=== PATIENT | female | born 1990 | race Two or more races ===

== ENCOUNTER 2024-10-06 23:19 | Emergency (ER) | payer MEDICAID, SELFPAY ==
[2024-10-06 23:20] VITALS: BMI 30.1
[2024-10-06 23:29] VITALS: BP 144/97; PULSE 94; RESP 19; TEMP 37; O2SAT 100
[2024-10-06 23:58] VITALS: RESP 18; TEMP 37; O2SAT 100
--- NOTE | 2024-10-07 04:18 | EDNOTE_ITS ---
Upper Respiratory Inf. RME/HPI General Chief Complaint: Dental/Oral/Throat Stated Complaint: SORE THROAT, COUGH, CHEST TIGHTNESS Time Seen by Provider: 10/06/24 23:53 Arrival date/time: 10/06/24 23:19 33F with no significant PMH presents to ED with 2 days of cough, sore throat, and some chest tightness. Limitations: no limitations Related Data Home Medications ?Medication ?Instructions ?Recorded ?Confirmed No Known Home Medications 09/17/23 0509/18 Allergies Allergy/AdvReac Type Severity Reaction Status Date / Time No Known Allergies Allergy Verified 11/01/23 11:32 Review of Systems Review of Systems Systems Reviewed: All systems reviewed, normal except as documented Constitutional Constitutional: Reports system reviewed and no additional complaints, except as documented, Reports as per HPI, Reports chills, Reports fever(s) and Denies headache(s) ENT Ears, Nose, Mouth, and Throat: Denies disequilibrium and Denies headache(s) Cardiovascular Cardiovascular: Reports system reviewed and no additional complaints, except as documented, Denies chest pain and Denies dyspnea Respiratory Respiratory: Reports system reviewed and no additional complaints, except as documented, Reports as per HPI, Reports chest congestion, Reports cough and Denies dyspnea Gastrointestinal Gastrointestinal: Reports system reviewed and no additional complaints, except as documented, Denies abdominal pain, Denies nausea and Denies vomiting Neurologic Neurologic: Reports system reviewed and no additional complaints, except as documented, Denies confusion, Denies disequilibrium and Denies headache(s) Psychiatric Psychiatric: Denies confusion Past Medical History Past Medical History NEUROLOGIC: Negative Neurological Disorders or Seizures CARDIAC: Negative Cardiac Disorders or Congestive Heart Failure RESPIRATORY: Negative Chronic Obstructive Pulmonary Disease (COPD) or Asthma GASTROINTESTINAL: Positive Gastrointestinal Disorders and Obesity; Negative Hepatitis GENITOURINARY: Negative Genitourinary Disorders or Renal Disease REPRODUCTIVE: Positive Previous Pregnancies MUSCULOSKELETAL: Negative Musculoskeletal Disorders ENT: Positive Retinal Detachment (right); Negative Cataracts ENDOCRINE: Negative Endocrine Disorders, Diabetes Mellitus Type 1, Diabetes Mellitus Type 2 or Hypothyroidism HEMATOLOGIC: Negative Blood Disorders or Sickle Cell Disease OTHER HISTORY: Positive Hospitalization (retinal detachment) and Chicken Pox; Negative Autoimmune Disease, Blood Transfusions, Blood Transfusion Reaction, Anesthesia Reactions, Organ Transplant, Chemotherapy, Radiation Therapy, Hyperbaric Therapy, MRSA or Cancer Family History FAMILY HISTORY: Negative Family Psychiatric Problems, Family Respiratory Disorders, Family Cardiac Disorders, Family Gastrointestinal Problems, Family Cancer, Family Surgery or Family Anesthesia Reaction Surgical History SURGICAL: Positive Eye Surgery (retinal detachment surgery); Negative Section or Organ Transplant Social History SMOKING STATUS: Never smoker ED Exam General Limitations: Present no limitations General appearance: Present alert and in no apparent distress Head Head exam: Present atraumatic Eye Eye exam: Present normal appearance, PERRL and EOMI ENT ENT exam: Present normal exam, normal oropharynx and mucous membranes moist Neck Neck exam: Present normal inspection, full ROM and trachea midline Chest Chest inspection: Present normal inspection and symmetric chest wall rise Respiratory Respiratory exam: Present normal lung sounds bilaterally Cardiovascular Cardiovascular exam: Present regular rate, normal rhythm and normal heart sounds Abdominal Exam Abdominal exam: Present soft and normal bowel sounds Extremities Exam Extremities exam: Present normal inspection and full ROM Back Exam Back exam: Present normal inspection and full ROM Neurological Exam Neurological exam: Present alert, oriented X3 and CN II-XII intact Psychiatric Psychiatric exam: Present normal affect and normal mood Skin Skin exam: Present warm, dry, intact and normal color Course Quality Measures none Orders Category Date Time Status Bedside Influenza A&B Antigen Test NOW Care 10/06/24 23:24 Completed Vital Signs Vital signs: Vital Signs Temperature 98.6 F 10/06/24 23:29 Pulse Rate 94 10/06/24 23:29 Respiratory Rate 19 10/06/24 23:29 Blood Pressure 144/97 H 10/06/24 23:29 Pulse Oximetry (%) 100 10/06/24 23:29 Oxygen Delivery Method Room Air 10/06/24 23:29 O2 at 100% on RA and WNLs Upper Respiratory Infection MDM Narrative MDM Narrative:: 33F with no significant PMH presents to ED with 2 days of cough, sore throat, and some chest tightness. Physical exam reveals clear NT and lungs. Normal WOB. Patient is afebrile, calm, and alert. Flu A/B+. Patient data External records reviewed:: [facility] previous records Clinical information provided by:: patient Social determinants that could affect healthcare access:: none Patient has the following chronic illnesses:: none How is presenting disease/condition affected by chronic disease/condition?: no chronic disease Evaluation data The following diagnostics were reviewed and interpreted by me:: lab results Lab and/or radiology exams considered but not ordered:: ordered Interpretation Summary: above Medications / Prescriptions Medications or Prescriptions considered but not ordered:: not ordered Medication administrations:: n/a Consultations Consultation(s) initiated? (list below): No Diagnosis Upper Respiratory Differential Diagnosis: upper respiratory infection, croup, otitis media, sinusitis, viral infection, bronchitis, influenza and pharyngitis Most likely diagnosis given after review of the tests above:: flu A/B Admission Indicated Admission indicated?: not indicated Admission Request Was there a request for admission?: No Disposition Plan Disposition Plan: Discharge Discharge Attestation Discharge Attestation: The patient and all family members were given an opportunity to ask questions and understood the discharge instructions. Discharge instructions specifically effects, indications for sooner follow up or return to the emergency department, and the expected course of current diagnosis. Patient condition: Stable Discharge Plan Plan Patient Disposition: HOME (Self Care) Disposition Comment: Stable Prescriptions/Referrals Prescriptions/Med Rec: No Action No Known Home Medications Problem List Clinical Impression: Influenza A, Influenza B Patient/Caregiver Discharge Instructions Education Materials: ED Influenza (Adult) Additional Instructions: Please follow-up with PCP within 24-48 hours and return immediately if symptoms worsen. Ibuprofen/Tylenol can be used simultaneously for greater fever/pain control. Benadryl is good for cough, congestion, and sleep. Print Language: French Stand Alone Forms: Work/School Release, Patient Portal Info Letter PA/PERIANESTHESIA MANAGER Supervising Physician PA/ANABELLE Supervising Physician: Dr. Bolton
== END 2024-10-06 23:58 | disposition home or self-care (01) ==
PROVIDERS: Emergency Provider Emergency Medicine
DX: J10.1 Influenza due to other identified influenza virus with other respiratory manifestations (principal)
CPT/HCPCS: 87400; 99283

== ENCOUNTER 2024-10-24 17:25 | Emergency (ER) | payer MEDICAID, SELFPAY ==
[2024-10-24 17:26] VITALS: BMI 30.1
[2024-10-24 17:56] VITALS: BP 145/90; PULSE 92; RESP 18; TEMP 37.1; O2SAT 99
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
[2024-10-24] MEDS: LORazepam 0.5 MG TABLET 1 MG PO (19:35)
== END 2024-10-24 19:39 | disposition home or self-care (01) ==
PROVIDERS: Emergency Provider Emergency Medicine
DX: F41.9 Anxiety disorder, unspecified (principal)
CPT/HCPCS: 99282; A9270

== ENCOUNTER 2024-11-01 21:25 | Emergency (ER) | payer MEDICAID, SELFPAY ==
[2024-11-01 21:27] VITALS: BMI 30.1
[2024-11-01 22:18] VITALS: BP 144/66; PULSE 81; RESP 18; TEMP 36.9; O2SAT 97
--- NOTE | 2024-11-01 22:58 | PD.EDDIZZY ---
ED Dizzyness RME/HPI General Chief Complaint: General Adult/Misc Complain Stated Complaint: SENT BY LOW IRON AND VITAMIN D, C/O DIZZINESS Time Seen by Provider: 11/01/24 22:42 Arrival date/time: 11/01/24 21:25 33F with history of anemia (2/2 iron deficiency and heavy menstrual bleeding) presents to ED with several days of dizziness and weakness. Patient was sent by PCP for low iron and vitamin D. Patient is currently on her period. Limitations: no limitations Related Data Home Medications ?Medication ?Instructions ?Recorded ?Confirmed No Known Home Medications 09/17/23 10/29/23 Allergies Allergy/AdvReac Type Severity Reaction Status Date / Time No Known Allergies Allergy Verified 11/01/24 21:26 Review of Systems Review of Systems Systems Reviewed: All systems reviewed, normal except as documented Constitutional Constitutional: Reports system reviewed and no additional complaints, except as documented, Denies fever(s), Denies headache(s) and Reports weakness ENT Ears, Nose, Mouth, and Throat: Reports as per HPI, Denies disequilibrium, Denies headache(s) and Reports vertigo Cardiovascular Cardiovascular: Reports system reviewed and no additional complaints, except as documented, Denies chest pain and Denies dyspnea Respiratory Respiratory: Reports system reviewed and no additional complaints, except as documented, Denies cough and Denies dyspnea Gastrointestinal Gastrointestinal: Reports system reviewed and no additional complaints, except as documented, Denies abdominal pain, Denies nausea and Denies vomiting Neurologic Neurologic: Reports system reviewed and no additional complaints, except as documented, Reports as per HPI, Denies confusion, Denies disequilibrium, Denies headache(s), Reports vertigo and Reports weakness Psychiatric Psychiatric: Denies confusion Past Medical History Past Medical History NEUROLOGIC: Negative Neurological Disorders or Seizures CARDIAC: Negative Cardiac Disorders or Congestive Heart Failure RESPIRATORY: Negative Chronic Obstructive Pulmonary Disease (COPD) or Asthma GASTROINTESTINAL: Positive Gastrointestinal Disorders and Obesity; Negative Hepatitis GENITOURINARY: Negative Genitourinary Disorders or Renal Disease REPRODUCTIVE: Positive Previous Pregnancies MUSCULOSKELETAL: Negative Musculoskeletal Disorders ENT: Positive Retinal Detachment (right); Negative Cataracts ENDOCRINE: Negative Endocrine Disorders, Diabetes Mellitus Type 1, Diabetes Mellitus Type 2 or Hypothyroidism HEMATOLOGIC: Negative Blood Disorders or Sickle Cell Disease OTHER HISTORY: Positive Hospitalization (retinal detachment) and Chicken Pox; Negative Autoimmune Disease, Blood Transfusions, Blood Transfusion Reaction, Anesthesia Reactions, Organ Transplant, Chemotherapy, Radiation Therapy, Hyperbaric Therapy, MRSA or Cancer Family History FAMILY HISTORY: Negative Family Psychiatric Problems, Family Respiratory Disorders, Family Cardiac Disorders, Family Gastrointestinal Problems, Family Cancer, Family Surgery or Family Anesthesia Reaction Surgical History SURGICAL: Positive Eye Surgery (retinal detachment surgery); Negative Section or Organ Transplant Social History SMOKING STATUS: Never smoker ED Exam General Limitations: Present no limitations General appearance: Present alert and in no apparent distress Head Head exam: Present atraumatic Eye Eye exam: Present normal appearance, PERRL and EOMI ENT ENT exam: Present normal exam, normal oropharynx and mucous membranes moist Neck Neck exam: Present normal inspection, full ROM and trachea midline Chest Chest inspection: Present normal inspection and symmetric chest wall rise Respiratory Respiratory exam: Present normal lung sounds bilaterally Cardiovascular Cardiovascular exam: Present regular rate, normal rhythm and normal heart sounds Abdominal Exam Abdominal exam: Present soft and normal bowel sounds Extremities Exam Extremities exam: Present normal inspection and full ROM Back Exam Back exam: Present normal inspection and full ROM Neurological Exam Neurological exam: Present alert, oriented X3 and CN II-XII intact Psychiatric Psychiatric exam: Present normal affect and normal mood Skin Skin exam: Present warm, dry, intact and normal color Course Quality Measures none Orders Category Date Time Status Insert IV NOW Care 11/01/24 23:50 Active CBC Stat Lab 11/01/24 23:06 Completed CMP [Comprehensive Metabolic Panel] Stat Lab 11/01/24 23:06 Completed Path Review Blood Smear Stat Lab 11/01/24 23:06 Completed Type and Screen Stat Lab 11/01/24 23:06 Results prbc [Red Blood Cells] Stat Lab 11/01/24 23:06 Results Vital Signs Vital signs: Vital Signs Temperature 98.5 F 11/01/24 22:18 Pulse Rate 81 11/01/24 22:18 Respiratory Rate 18 11/01/24 22:18 Blood Pressure 144/66 H 11/01/24 22:18 Pulse Oximetry (%) 97 11/01/24 22:18 Oxygen Delivery Method Room Air 11/01/24 22:18 O2 at 97% on RA and WNLs Dizziness MDM Narrative MDM Narrative:: 33F with history of anemia (2/2 iron deficiency and heavy menstrual bleeding) presents to ED with several days of dizziness and weakness. Patient was sent by PCP for low iron and vitamin D. Patient is currently on her period. Physical exam reveals normal pupil response and EOM. Gait normal. Normal WOB. Patient is afebrile, calm, and alert. Hgb 6.8. CMP unremarkable. 2 units given. Recruiter Coordinator given. Patient data External records reviewed:: [facility] previous records Clinical information provided by:: patient Social determinants that could affect healthcare access:: none Patient has the following chronic illnesses:: anemia How is presenting disease/condition affected by chronic disease/condition?: exacerbated by Evaluation data The following diagnostics were reviewed and interpreted by me:: lab results Lab and/or radiology exams considered but not ordered:: ordered Interpretation Summary: above Medications / Prescriptions Medications or Prescriptions considered but not ordered:: ordered Medication administrations:: blood products Consultations Consultation(s) initiated? (list below): No Diagnosis Dizziness Differential Diagnosis: adverse reaction to drug, benign paroxysmal positional vertigo, orthostatic hypotension, vertebral basilar insufficiency, cerebrovascular accident, acute vestibular neuronitis, transient cerebral ischemia and other (anemia) Most likely diagnosis given after review of the tests above:: anemia Admission Indicated Admission indicated?: not indicated Admission Request Was there a request for admission?: No Disposition Plan Disposition Plan: Discharge Discharge Attestation Discharge Attestation: The patient and all family members were given an opportunity to ask questions and understood the discharge instructions. Discharge instructions specifically effects, indications for sooner follow up or return to the emergency department, and the expected course of current diagnosis. Patient condition: Stable Discharge Plan Plan Patient Disposition: HOME (Self Care) Discharge Disposition comment: Stable Prescriptions/Referrals Prescriptions/Med Rec: No Action No Known Home Medications Referrals: Ric Jackson MD [Primary Care Provider] - In 1 week Problem List Clinical Impression: Anemia Patient/Caregiver Discharge Instructions Education Materials: Anemia, Iron Supplements Additional Instructions: Please follow-up with PCP within 24-48 hours and return immediately if symptoms worsen. Follow-up with PCP for iron supplementation. Print Language: Wolof Stand Alone Forms: Patient Portal Info Letter JOSE ENRIQUE/ANABELLE Supervising Physician JOSE ENRIQUE/ANABELLE Supervising Physician: Dr. Mcgee
[2024-11-01 23:33] LABS: Basophils % (Auto) 0 % (0-2.5); Eosinophils # (Auto) 0.1 Thou/mm3 (0.0-0.5); Eosinophils % (Auto) 2 % (0-10); Hematocrit 25.5 % (36.0-46.0); Immature Granulocytes % (Auto) 0 % (0-0); Immature Granulocytes Auto 0.03 Thou/mm3 (0.00-0.00); Lymphocytes # (Auto) 2.3 Thou/mm3 (1.0-4.8); Lymphocytes % (Auto) 26 % (10-50); Mean Corpuscular HGB Conc 26.7 g/dl (31.0-37.0); Mean Corpuscular Hemoglobin 13.9 pg (25.0-35.0); Mean Corpuscular Volume 52 fL (80-100); Monocytes # (Auto) 0.7 Thou/mm3 (0.0-0.8); Monocytes % (Auto) 8 % (0-12); Neutrophils # (Auto) 5.6 Thou/mm3 (1.8-7.7); Neutrophils % (Auto) 64 % (37-80); Nucleated Red Blood Cell % 0 /100 WBC (0); Platelet Count 383 Thou/mm3 (140-440); RDW Standard Deviation 42.3 fL (36.4-46.3); Red Blood Count 4.89 Miln/mm3 (4.00-5.20); White Blood Count 8.8 Thou/mm3 (3.6-11.0)
[2024-11-01 23:49] LABS: Hemoglobin 6.8 g/dL (12.0-16.0)
[2024-11-01 23:58] LABS: Alanine Aminotransferase < 7 U/L (10-49); Albumin, Serum 4.9 gm/dL (3.5-5.0); Albumin/Globulin Ratio 1.6 (1.2-2.2); Alkaline Phosphatase 58 U/L (46-116); Anion Gap 9 (7-16); Aspartate Amino Transferase 14 U/L (0-34); BUN/Creatinine Ratio 16 Ratio (12-20); Bilirubin,Total 1.7 mg/dL (0.3-1.2); Blood Urea Nitrogen 11 mg/dL (9-23); Calcium 9.1 mg/dL (8.3-10.6); Calcium (Corrected) 9.1 mg/dL (8.5-10.1); Chloride 108 mMol/L (98-107); Creatinine (Component) 0.7 mg/dL (0.6-1.3); Estimated Creatinine Clearance 110.3 mL/min (>60); Globulin 3.1 gm/dL (2.3-3.5); Glucose 106 mg/dL (74-106); Osmolality,Calculated 280 (275-295); Potassium 4.1 mMol/L (3.4-5.1); Sodium 141 mMol/L (136-145); eGFR > 60 See Note
[2024-11-02] VITALS (9 sets, daily range): BP systolic 123–158; BP diastolic 62–90; PULSE 58–71; RESP 16–19; TEMP 36.7–37.2; O2SAT 98–100
[2024-11-02 04:18] LABS: Path Review Blood Smear Sent to Pathologist
== END 2024-11-02 05:55 | disposition home or self-care (01) ==
PROVIDERS: Physician Assistant; Emergency Provider Emergency Medicine; PCP Family Medicine
DX: D64.9 Anemia, unspecified (principal)
CPT/HCPCS: 36415; 36430; 80053; 85025; 86850; 86900; 86901; 86923; 99285; P9016

== ENCOUNTER 2024-12-26 00:52 | Emergency (ER) | payer MEDICAID, SELFPAY ==
[2024-12-26 00:58] VITALS: BP 151/92; PULSE 77; RESP 18; TEMP 36.4; O2SAT 98
--- NOTE | 2024-12-26 01:06 | PD.EDALLER ---
ED Allergic Reaction RME/HPI General Chief complaint: Allergic Reaction Stated complaint: ALLERGIC REACTION Time Seen by Provider: 12/26/24 00:56 Source: patient, RN notes reviewed and old records reviewed Arrival date/time: 12/26/24 00:52 Mode of arrival: ambulatory Limitations: no limitations RME / HPI RME / HPI narrative: 34yof presents to ED for lip swelling, rash, itching since 1999 tonight. Patient reports eating meatballs for dinner, she has tolerated food in the past. No known drug or food allergies. No tongue/throat swelling, shortness of breath, nausea/vomiting or syncope reported. 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 Related Data Previous Rx's ?Medication ?Instructions ?Recorded diphenhydramine HCl 25 mg capsule 50 mg (2 x 25 mg) PO Q6H PRN 12/26/24 (Benadryl) allergic reaction #30 caps famotidine 40 mg tablet (Pepcid) 40 mg PO QDAY 7 days #7 tabs 12/26/24 Allergies Allergy/AdvReac Type Severity Reaction Status Date / Time No Known Allergies Allergy Verified 11/01/24 21:26 Review of Systems Review of Systems Systems Reviewed: All systems reviewed, normal except as documented ENT Ears, Nose, Mouth, and Throat: Reports lip swelling, Denies throat swelling and Denies tongue swelling Cardiovascular Cardiovascular: Denies dyspnea Respiratory Respiratory: Denies dyspnea Gastrointestinal Gastrointestinal: Denies nausea and Denies vomiting Integumentary/Breasts Skin/Breast: Reports pruritus and Reports rash Allergic/Immunologic Allergic/Immunologic: Reports lip swelling, Denies throat swelling and Denies tongue swelling Past Medical History Past Medical History GASTROINTESTINAL: Positive Obesity Surgical History OTHER SURGICAL HX: Retinal attachment, cataract surgery Social History SMOKING STATUS: Never smoker SUBSTANCE USE: does not use ALCOHOL: Never ED Exam General Limitations: Present no limitations General appearance: Present alert and in no apparent distress Head Head exam: Present atraumatic and normocephalic Eye Eye exam: Present normal appearance, PERRL and EOMI ENT ENT exam: Present normal oropharynx, mucous membranes moist and other (Mild lower lip swelling) Neck Neck exam: Present normal inspection and full ROM Chest Chest inspection: Present normal inspection and symmetric chest wall rise Respiratory Respiratory exam: Present normal lung sounds bilaterally; Absent respiratory distress, wheezes or stridor Cardiovascular Cardiovascular exam: Present regular rate and normal rhythm Extremities Exam Extremities exam: Present normal inspection and full ROM Neurological Exam Neurological exam: Present alert and oriented X3 Psychiatric Psychiatric exam: Present normal affect and normal mood Skin Skin exam: Present warm, dry, intact and other (generalized scattered maculopapular rash) Course Quality Measures none Orders Category Date Time Status Dexamethasone Inj [Decadron Inj] Med 12/26/24 01:05 Discontinued 10 mg IM X1 ONE DiphenhydrAMINE [Benadryl] Med 12/26/24 01:05 Discontinued 50 mg PO X1 ONE Famotidine [Pepcid] Med 12/26/24 01:05 Discontinued 40 mg PO X1 ONE Vital Signs Vital signs: Vital Signs Temperature 97.6 F 12/26/24 00:58 Pulse Rate 77 12/26/24 00:58 Respiratory Rate 18 12/26/24 00:58 Blood Pressure 151/92 H 12/26/24 00:58 Pulse Oximetry (%) 98 12/26/24 00:58 Oxygen Delivery Method Room Air 12/26/24 00:58 Allergic Reaction MDM Narrative MDM Narrative:: 34yof presents to ED for lip swelling, rash, itching since 1999 tonight. Patient reports eating meatballs for dinner, she has tolerated food in the past. No known drug or food allergies. No tongue/throat swelling, shortness of breath, nausea/vomiting or syncope reported. 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 Patient eloped prior to receiving DC instructions. Patient data External records reviewed:: [facility] previous records (11/01/24 ED visit for anemia) Clinical information provided by:: patient Social determinants that could affect healthcare access:: other (specify) (poor access to healthcare) Patient has the following chronic illnesses:: obesity How is presenting disease/condition affected by chronic disease/condition?: uneffected by Evaluation data The following diagnostics were reviewed and interpreted by me:: other (specify) (none) Lab and/or radiology exams considered but not ordered:: none Interpretation Summary: na Medications / Prescriptions Medications or Prescriptions considered but not ordered:: no antibiotics recommended at this time Medication administrations:: Medication Administration History Discontinued Medications Dexamethasone Sodium Phosphate (Dexamethasone Sod Phos Inj 10 Mg/Ml Vial) 10 mg IM X1 ONE Stop: 12/26/24 01:06 Last Admin: 12/26/24 01:14 Dose: 10 mg Documented By: OTTO Diphenhydramine HCl (Diphenhydramine 25 Mg Capsule) 50 mg PO X1 ONE Stop: 12/26/24 01:06 Last Admin: 12/26/24 01:14 Dose: 50 mg Documented By: OTTO Famotidine (Famotidine 20 Mg Tablet) 40 mg PO X1 ONE Stop: 12/26/24 01:06 Last Admin: 12/26/24 01:14 Dose: 40 mg Documented By: OTTO above medications administered in ED Consultations Consultation(s) initiated? (list below): No Diagnosis Differential Diagnosis allergic reaction: anaphylaxis, allergic reaction, angioedema, contact dermatitis, adverse reaction to drug, viral enanthem and urticaria Most likely diagnosis given after review of the tests above:: rash, allergic reaction Admission Indicated Admission indicated?: not indicated Admission Request Was there a request for admission?: No Disposition Plan Disposition Plan: Discharge Discharge Attestation Discharge Attestation: The patient and all family members were given an opportunity to ask questions and understood the discharge instructions. Discharge instructions specifically effects, indications for sooner follow up or return to the emergency department, and the expected course of current diagnosis. Patient condition: Stable Discharge Plan Plan Patient Disposition: HOME (Self Care) Patient condition on transfer: Stable Prescriptions/Referrals Prescriptions/Med Rec: New diphenhydramine HCl [Benadryl] 25 mg capsule 50 mg PO Q6H PRN (Reason: allergic reaction) Qty: 30 0RF famotidine [Pepcid] 40 mg tablet 40 mg PO QDAY 7 Days Qty: 7 0RF Referrals: Ric Jackson MD [Primary Care Provider] - In 1 week Problem List Clinical Impression: Allergic reaction Patient/Caregiver Discharge Instructions Education Materials: ED Food Allergy Print Language: Welsh Stand Alone Forms: Alayna Award Info., Work/School Release, Patient Portal Info Letter PA/MAIL ROOM Supervising Physician PA/MAIL ROOM Supervising Physician: Mitchel
[2024-12-26] MEDS: DEXAMETHASONE SOD PHOS INJ 10 MG/ML VIAL IM (01:14)
[2024-12-26] MEDS: FAMOTIDINE 20 MG TABLET 40 MG PO (01:14)
== END 2024-12-26 02:26 | disposition home or self-care (01) ==
PROVIDERS: Emergency Provider Emergency Medicine; PCP Family Medicine
DX: T78.40XA Allergy, unspecified, initial encounter (principal)
CPT/HCPCS: 96372; 99283; J1100; A9270

== ENCOUNTER 2025-03-13 22:34 | Emergency (ER) | payer MEDICAID, SELFPAY ==
[2025-03-13 22:35] VITALS: BMI 34.2
[2025-03-13 23:13] VITALS: BP 138/83; PULSE 75; RESP 18; TEMP 36.5; O2SAT 99
--- NOTE | 2025-03-13 23:22 | EDRME_ITS ---
Rapid Medical Screening Exam COUNTS INCLUDE 234 BEDS AT THE [facility] Arrival date/time: 03/13/25 22:34 34F with history of anemia likely 2/2 to vaginal bleeding (has needed blood transfusions before) presents to ED with heavy vaginal bleeding and dizziness/weakness. Chief Complaint: Vaginal Bleeding Vital signs: Vital Signs Temperature 97.7 F 03/13/25 23:13 Pulse Rate 75 03/13/25 23:13 Respiratory Rate 18 03/13/25 23:13 Blood Pressure 138/83 H 03/13/25 23:13 Pulse Oximetry (%) 99 03/13/25 23:13 Oxygen Delivery Method Room Air 03/13/25 23:13
[2025-03-13 23:49] LABS: Basophils # (Auto) 0.0 Thou/mm3 (0.0-0.2); Basophils % (Auto) 0 % (0-2.5); Eosinophils # (Auto) 0.1 Thou/mm3 (0.0-0.5); Eosinophils % (Auto) 2 % (0-10); Hematocrit 33.6 % (36.0-46.0); Hemoglobin 9.7 g/dL (12.0-16.0); Immature Granulocytes Auto 0.02 Thou/mm3 (0.00-0.00); Lymphocytes # (Auto) 2.4 Thou/mm3 (1.0-4.8); Lymphocytes % (Auto) 34 % (10-50); Mean Corpuscular HGB Conc 28.9 g/dl (31.0-37.0); Mean Corpuscular Hemoglobin 19.3 pg (25.0-35.0); Mean Corpuscular Volume 67 fL (80-100); Monocytes # (Auto) 0.6 Thou/mm3 (0.0-0.8); Monocytes % (Auto) 9 % (0-12); Neutrophils # (Auto) 3.9 Thou/mm3 (1.8-7.7); Neutrophils % (Auto) 55 % (37-80); Nucleated Red Blood Cell # 0.00 Thou/mm3 (0.00-0.00); Nucleated Red Blood Cell % 0 /100 WBC (0); Platelet Count 282 Thou/mm3 (140-440); RDW Standard Deviation 47.8 fL (36.4-46.3); Red Blood Count 5.03 Miln/mm3 (4.00-5.20); White Blood Count 7.1 Thou/mm3 (3.6-11.0)
--- NOTE | 2025-03-14 | XR_ITS ---
Examination: Transvaginal ultrasound of the pelvis, complete Technique: Transvaginal sonographic images pelvis performed using farias scale imaging Exam date and time: March 14, 2025, 0004 hrs. Indications: Irregular vaginal heavy bleeding beginning 2 days ago. Findings: Uterus 9.0 cm endometrial stripe 0.7 cm Uterine fundal mass 9 x 4 x 7 mm Ovaries obscured by bowel gas Impression: Limited study Small uterine fundal area of fibroid degeneration
[2025-03-14 00:03] LABS: Alanine Aminotransferase 11 U/L (10-49); Albumin, Serum 4.3 gm/dL (3.5-5.0); Albumin/Globulin Ratio 1.7 (1.2-2.2); Alkaline Phosphatase 64 U/L (46-116); Anion Gap 9 (7-16); Aspartate Amino Transferase 12 U/L (0-34); BUN/Creatinine Ratio 12 Ratio (12-20); Bilirubin,Total 0.7 mg/dL (0.3-1.2); Blood Urea Nitrogen 7 mg/dL (9-23); Calcium 9.4 mg/dL (8.3-10.6); Calcium (Corrected) 9.4 mg/dL (8.5-10.1); Carbon Dioxide 24.1 mMol/L (20.0-31.0); Chloride 108 mMol/L (98-107); Creatinine (Component) 0.6 mg/dL (0.6-1.3); Estimated Creatinine Clearance 130.9 mL/min (>60); Globulin 2.6 gm/dL (2.3-3.5); Glucose 112 mg/dL (74-106); Osmolality,Calculated 280 (275-295); Potassium 3.6 mMol/L (3.4-5.1); Sodium 141 mMol/L (136-145); Total Protein 6.9 gm/dL (5.7-8.2); eGFR > 60 See Note
[2025-03-14 00:24] LABS: Collection Type, Urine Clean Catch; Squamous Epithelial Cell,Urine 0 /hpf (0-5)
[2025-03-14 00:36] LABS: Bilirubin,Urine Negative (Negative); Blood,Urine 3+ (Negative); Culture Indicated,Urine Not Indicated; Glucose, Urine Trace (Negative); Ketones,Urine Trace (Negative); Leukocyte Esterase,Urine Positive (Negative); Nitrite,Urine Negative (Negative); PH,Urine 6.0 (5.0-7.0); Protein,Urine 1+ (Neg - Trace); RBC,Urine 7535 /hpf (0-3); Specific Gravity,Urine 1.034 (1.001-1.035); Urobilinogen,Urine Negative mg/dL (0.0-1.0); WBC,Urine 4 /hpf (0-5)
[2025-03-14 00:37] LABS: HCG Qualitative,Urine Negative
[2025-03-14 00:38] LABS: Clarity,Urine Turbid (Clear/Hazy); Color,Urine Lt Orange (Lt Yel-Yel)
--- NOTE | 2025-03-14 01:11 | PD.EDVAGBL ---
ED OB Contraction Preg RMI/HPI General Chief complaint: Vaginal Bleeding Stated complaint: HEAVY VAGINAL BLEEDING X2 DAYS Arrival date/time: 03/13/25 22:34 RME / HPI RME / HPI Narrative: 03/13/25 22:34 34F with history of anemia likely 2/2 to vaginal bleeding (has needed blood transfusions before) presents to ED with heavy vaginal bleeding and dizziness/weakness. --------- Dr. Salazar?s Main ED Evaluation: 34yo female with a history of anemia presents to the ED for a chief complaint of heavy vaginal bleeding. Patient has had similar episodes in the past, in which she has required blood transfusions. Patient has been having this issue since she had her IUD removed and is pending an appointment with [employer]END[employer]. Patient reports associated abdominal cramping, dizziness, and generalized weakness. Denies any other associated symptoms. NKA. Related Data Previous Rx's ?Medication ?Instructions ?Recorded diphenhydramine HCl 25 mg capsule 50 mg (2 x 25 mg) PO Q6H PRN 12/26/24 (Benadryl) allergic reaction #30 caps Allergies Allergy/AdvReac Type Severity Reaction Status Date / Time No Known Allergies Allergy Verified 11/01/24 21:26 Review of Systems Review of Systems Systems Reviewed: All systems reviewed, normal except as documented Past Medical History Past Medical History NEUROLOGIC: Negative Neurological Disorders or Seizures CARDIAC: Negative Cardiac Disorders or Congestive Heart Failure RESPIRATORY: Negative Chronic Obstructive Pulmonary Disease (COPD) or Asthma GASTROINTESTINAL: Positive Gastrointestinal Disorders and Obesity; Negative Hepatitis GENITOURINARY: Negative Genitourinary Disorders or Renal Disease REPRODUCTIVE: Positive Previous Pregnancies MUSCULOSKELETAL: Negative Musculoskeletal Disorders ENT: Positive History of ENT Problems and Retinal Detachment; Negative Cataracts ENDOCRINE: Negative Endocrine Disorders, Diabetes Mellitus Type 1, Diabetes Mellitus Type 2 or Hypothyroidism HEMATOLOGIC: Positive Anemia; Negative Blood Disorders or Sickle Cell Disease PSYCHO/SOCIAL: Positive Depression and Anxiety OTHER HISTORY: Positive Hospitalization, Blood Transfusions and Chicken Pox; Negative Autoimmune Disease, Blood Transfusion Reaction, Anesthesia Reactions, Organ Transplant, Chemotherapy, Radiation Therapy, Hyperbaric Therapy, MRSA or Cancer Family History FAMILY HISTORY: Negative Family Psychiatric Problems, Family Respiratory Disorders, Family Cardiac Disorders, Family Gastrointestinal Problems, Family Cancer, Family Surgery or Family Anesthesia Reaction Surgical History SURGICAL: Positive Eye Surgery (RETINA DETACHMENT); Negative Section or Organ Transplant Social History SMOKING STATUS: Never smoker SUBSTANCE USE: does not use ED Exam Narrative Physical exam: Generally patient is alert and in no obvious distress, heart regular rate and rhythm, lungs clear to auscultation equal bilaterally, abdomen soft bowel sounds present nondistended nontender, skin is warm pale and dry, neurologic exam no focal motor or sensory deficits and cranial nerves II through XII grossly intact Course Quality Measures none Orders Category Date Time Status US transvaginal Stat Exams 03/14/25 00:00 Taken Antibody Identification Stat Lab 03/13/25 23:31 Results CBC Stat Lab 03/13/25 23:31 Completed CMP [Comprehensive Metabolic Panel] Stat Lab 03/13/25 23:31 Completed HCG Qualitative,Urine Stat Lab 03/13/25 23:46 Completed Type and Screen Stat Lab 03/13/25 23:31 Results Urinalysis, C/S if Indicated Stat Lab 03/13/25 23:46 Completed Vital Signs Vital signs: Vital Signs Temperature 97.7 F 03/13/25 23:13 Pulse Rate 75 03/13/25 23:13 Respiratory Rate 18 03/13/25 23:13 Blood Pressure 138/83 H 03/13/25 23:13 Pulse Oximetry (%) 99 03/13/25 23:13 Oxygen Delivery Method Room Air 03/13/25 23:13 Vaginal Bleeding MDM Narrative MDM Narrative: Scribe Attestation: 03/14/25 - Tiera Breen am scribing for and in the presence of Dr. Salazar. I interpreted all labs. Hemoglobin is greater than 9. Platelet count is normal. Pelvic ultrasound showed a uterine fibroid. Patient has an appointment with an EMPLOYEE'S REPRESENTATIVE physician next week. She is to keep that appointment. Patient data External records reviewed:: [facility] previous records (Per chart review, patient was seen here on 11/21/24 for anemia.) Clinical information provided by:: patient Social determinants that could affect healthcare access:: none Patient has the following chronic illnesses:: anemia How is presenting disease/condition affected by chronic disease/condition?: uneffected by Evaluation data The following diagnostics were reviewed and interpreted by me:: lab results and radiology exam(s) Lab and/or radiology exams considered but not ordered:: none Interpretation Summary: Telerad Preliminary Report Draft Patient: ROBERT WALSHLeonel Record#: [id number] Birthdate: 1990 Age/Sex: 34 / F Location: [facility] Attending Dr: Ordering Physician: Date of Service: Procedure(s): Accession Number(s): cc: ~ Pelvic ultrasound (transvaginal). March 14, 2025 at 0004 hours Clinical history: Heavy bleeding. Heavy menstrual cycle starting 2 days ago. LMP 03/12/2025. Technique: Real-time, grayscale, transvaginal pelvic ultrasound was performed using Duplex scanning including arterial inflow, venous outflow, color and spectral Doppler. Comparison: No relevant prior study is available for comparison. Findings: The evaluation is limited due to excessive overlying bowel gas The uterus is anteverted and normal in size measuring 9 x 4.6 x 5.8 cm. There is a fundal/lateral fibroid measuring 0.9 x 0.4 x 0.7 cm. The endometrium is unremarkable and measures 0.7 cm. The ovaries are not visualized/demonstrated on this examination due to bowel gas. There is no adnexal mass. There is no free fluid on the submitted images. The cervical length measures 1.7 cm. Impression: Limited evaluation as described. 1. Uterine fibroid as described. Recommend clinical correlation. 2. Ovaries are not visualized/demonstrated on this examination due to bowel gas. Report Electronically Signed By: Shanique Patel 03/14/2025 2:09:13 AM [EST] Medications / Prescriptions Medications or Prescriptions considered but not ordered:: none Medication administrations:: none Consultations Consultation(s) initiated? (list below): No Diagnosis Vaginal Bleeding Differential Diagnosis: other (See MDM) Most likely diagnosis given after review of the tests above:: see clinical impression below Admission Indicated Admission indicated?: not indicated Admission Request Was there a request for admission?: No Disposition Plan Disposition Plan: Discharge Discharge Attestation Discharge Attestation: The patient and all family members were given an opportunity to ask questions and understood the discharge instructions. Discharge instructions specifically effects, indications for sooner follow up or return to the emergency department, and the expected course of current diagnosis. Patient condition: Stable Discharge Plan Plan Patient Disposition: HOME (Self Care) Prescriptions/Referrals Prescriptions/Med Rec: No Action diphenhydramine HCl [Benadryl] 25 mg capsule 50 mg PO Q6H PRN (Reason: allergic reaction) Qty: 30 0RF Referrals: Ric Jackson MD [Primary Care Provider, Family Practice] - In 1 week Problem List Clinical Impression: Vaginal bleeding, Fibroid, uterine Patient/Caregiver Discharge Instructions Education Materials: ED Dysfunctional Uterine Bleeding Additional Instructions: Keep your follow-up appointment with the EMPLOYEE'S REPRESENTATIVE physician. Return as needed. Print Language: Nepalese Stand Alone Forms: Alayna Award Info., Patient Portal Info Letter
--- NOTE | 2025-03-14 02:10 | PRELIM_ITS ---
Pelvic ultrasound (transvaginal). March 14, 2025 at 0004 hours Clinical history: Heavy bleeding. Heavy menstrual cycle starting 2 days ago. LMP 03/12/2025. Technique: Real-time, grayscale, transvaginal pelvic ultrasound was performed using Duplex scanning including arterial inflow, venous outflow, color and spectral Doppler. Comparison: No relevant prior study is available for comparison. Findings: The evaluation is limited due to excessive overlying bowel gas The uterus is anteverted and normal in size measuring 9 x 4.6 x 5.8 cm. There is a fundal/lateral fibroid measuring 0.9 x 0.4 x 0.7 cm. The endometrium is unremarkable and measures 0.7 cm. The ovaries are not visualized/demonstrated on this examination due to bowel gas. There is no adnexal mass. There is no free fluid on the submitted images. The cervical length measures 1.7 cm. Impression: Limited evaluation as described. 1. Uterine fibroid as described. Recommend clinical correlation. 2. Ovaries are not visualized/demonstrated on this examination due to bowel gas. Report Electronically Signed By: Shanique Patel 03/14/2025 2:09:13 AM [EST]
[2025-03-14 02:25] VITALS: BP 108/67; PULSE 70; RESP 18; O2SAT 100
== END 2025-03-14 02:26 | disposition home or self-care (01) ==
PROVIDERS: Physician Assistant; Emergency Provider Emergency Medicine; PCP Family Medicine
DX: D25.9 Leiomyoma of uterus, unspecified (principal)
CPT/HCPCS: 36415; 76830; 80053; 81001; 81025; 85025; 86850; 86870; 86900; 86901; 99283

== ENCOUNTER 2025-04-04 20:38 | Emergency (ER) | payer MEDICAID, SELFPAY ==
[2025-04-04 20:39] VITALS: BMI 32.9
[2025-04-04 21:38] VITALS: BP 167/90; PULSE 80; RESP 16; TEMP 36.7; O2SAT 99
--- NOTE | 2025-04-04 21:56 | PD.EDHA ---
ED Headache RME/HPI General Chief Complaint: Headache Stated Complaint: HEADACHE Time Seen by Provider: 04/04/25 21:41 Arrival date/time: 04/04/25 20:38 RME / HPI RME / HPI Narrative: See [facility] for Dr. Mandel's HPI documentation. Related Data Previous Rx's ?Medication ?Instructions ?Recorded diphenhydramine HCl 25 mg capsule 50 mg (2 x 25 mg) PO Q6H PRN 12/26/24 (Benadryl) allergic reaction #30 caps acetaminophen 300 mg-codeine 30 mg 2 tab PO Q8H PRN pain #20 tabs 04/05/25 tablet ondansetron 4 mg disintegrating 4 mg PO TID PRN nausea and 04/05/25 tablet vomiting 30 days #10 tabs Allergies Allergy/AdvReac Type Severity Reaction Status Date / Time No Known Allergies Allergy Verified 04/04/25 20:42 Review of Systems Review of Systems Systems Reviewed: All systems reviewed, normal except as documented ED Exam Narrative Physical exam: See [facility] for Dr. Mandel's physical exam documentation. Course Quality Measures none Orders Category Date Time Status Bedside COVID-19 Antigen Test NOW Care 04/04/25 22:[address] head/brain wo con Stat Exams 04/04/25 22:02 Taken Influenza A & B Rapid Panel Stat Lab 04/05/25 00:07 Completed ACETAMINOPHEN w/COD 300-30 [Tylenol w/Cod #3] Med 04/04/25 22:01 Discontinued 2 tab PO X1 ONE Ibuprofen Tab [Motrin Tab] Med 04/04/25 22:01 Discontinued 800 mg PO X1 ONE Ondansetron Odt [Zofran Odt] Med 04/04/25 22:01 Discontinued 4 mg PO X1 ONE Vital Signs Vital signs: Vital Signs Temperature 98.1 F 04/04/25 21:38 Pulse Rate 80 04/04/25 21:38 Respiratory Rate 16 04/04/25 21:38 Blood Pressure 167/90 H 04/04/25 21:38 Pulse Oximetry (%) 99 04/04/25 21:38 Oxygen Delivery Method Room Air 04/04/25 21:38 Headache MDM Narrative [facility] Narrative:: This section includes all my notes and documentations, including HPI, PE, and ED course. Cyrus Mandel MD HPI: 34-year-old female here with about a week history of headache. Normally, she doesn't suffer from headaches. Severe in the past 6 hours. Reports bilateral temporal throbbing with nausea and photophobia and phonophobia. With right eye pressure. No speech impairment. No loss of power in the arms or legs. No fever or chills. No other complaints. ROS: All negative except as documented in HPI. Physical Exam: General:? Alert and oriented.? In obvious pain. Eyes:? Conjunctivae and lids clear.? EOMI.? PERRL. ENT:? No nasal congestion.? Pharynx normal.? Tympanic membrane normal bilaterally.??? Neck:? Supple.? Heart:? RRR.? Lungs:? No respiratory distress.? Good air movement.? No rhonchi, wheezing, rales.?? Skin:? Warm and dry.?? Neuro:? Alert and oriented X 3.? Cranial Nerves II-XII grossly intact.? No peripheral motor deficits. I reviewed all diagnostic test results. My review of the CT head report is unremarkable. COVID/Influenza negative. At this point, diagnoses include: Migraine headache Treatment here included: Tylenol with Codeine X 2 Ibuprofen 800 mg Zofran ODT 4 mg Significant improvement noted. Recommended outpatient management. Based on my best medical judgment, made decision no further evaluation or treatment indicated at this time. Patient understands and agrees to the discharge instructions customized and printed, see below. Discharge Instructions from Dr. Mandel: --After evaluation, your symptoms are due to migraine headache. Fortunately, there is no life-threatening condition. Such as stroke or brain tumor. --When you get home, try to get some rest in the dark. This can be the best treatment for migraine headache. --Try to eat regular nutritious meals, maintain good hydration, decrease stress, and get regular physical exercise. Increase oral fluid and maintain clear urine. If dark or yellow, increase oral fluid. --Take Zofran for nausea. With migraines, controlling your nausea as soon as possible can help. --Tylenol with codeine for severe pain. --See a private doctor of your choice on 04/06/2025 for recheck and further care. Ask to consider a referral to see a neurologist and MRI brain imaging. --Seek immediate medical care with worsening or with any concerns. Cyrus Mandel MD Patient data External records reviewed:: [facility] previous records (Per chart review, patient was seen here on 03/14/25 for uterine fibroid.) Clinical information provided by:: patient Social determinants that could affect healthcare access:: none Patient has the following chronic illnesses:: anemia How is presenting disease/condition affected by chronic disease/condition?: uneffected by Evaluation data The following diagnostics were reviewed and interpreted by me:: lab results and radiology exam(s) Lab and/or radiology exams considered but not ordered:: none Interpretation Summary: I reviewed all diagnostic test results. My review of the CT head report is unremarkable. COVID/Influenza negative. Medications / Prescriptions Medications or Prescriptions considered but not ordered:: none Medication administrations:: Medication Administration History Discontinued Medications Acetaminophen/Codeine Phosphate (Acetaminophen W/Cod 300-30 Tablet) 2 tab PO X1 ONE Stop: 04/04/25 22:02 Last Admin: 04/04/25 22:20 Dose: 2 tab Documented By: DT Ibuprofen (Ibuprofen Tab 400 Mg Tablet) 800 mg PO X1 ONE Stop: 04/04/25 22:02 Last Admin: 04/04/25 22:21 Dose: 800 mg Documented By: DT Ondansetron HCl (Ondansetron Odt 4 Mg Tabrap) 4 mg PO X1 ONE; Protocol Stop: 04/04/25 22:02 Last Admin: 04/04/25 22:22 Dose: 4 mg Documented By: DT Treatment here included: Tylenol with Codeine X 2 Ibuprofen 800 mg Zofran ODT 4 mg Consultations Consultation(s) initiated? (list below): No Diagnosis Differential diagnosis headache: migraine, tension headache and subarachnoid hemorrhage Most likely diagnosis given after review of the tests above:: Migraine headache Admission Indicated Admission indicated?: not indicated Explain why admission is indicated or not indicated:: With significant improvement and no condition needing emergent intervention, there was no indication for admission. Admission Request Was there a request for admission?: No Disposition Plan Disposition Plan: Discharge Discharge Attestation Discharge Attestation: The patient and all family members were given an opportunity to ask questions and understood the discharge instructions. Discharge instructions specifically effects, indications for sooner follow up or return to the emergency department, and the expected course of current diagnosis. Patient condition: Stable Discharge Plan Plan Patient Disposition: HOME (Self Care) Prescriptions/Referrals Prescriptions/Med Rec: New acetaminophen-codeine 300-30 mg tablet 2 tab PO Q8H MDD 6 PRN (Reason: pain) Qty: 20 0RF ondansetron 4 mg tablet,disintegrating 4 mg PO TID PRN (Reason: nausea and vomiting) 30 Days Qty: 10 0RF No Action diphenhydramine HCl [Benadryl] 25 mg capsule 50 mg PO Q6H PRN (Reason: allergic reaction) Qty: 30 0RF Referrals: No Primary/Family,Physician [Primary Care Provider] - In 1 week Problem List Clinical Impression: Migraine headache Patient/Caregiver Discharge Instructions Discharge Activity: activity as tolerated Education Materials: ED Headache, Migraine, Classic Additional Instructions: Discharge Instructions from Dr. Mandel: --After evaluation, your symptoms are due to migraine headache.? Fortunately, there is no life-threatening condition.? Such as stroke or brain tumor. --When you get home, try to get some rest in the dark.? This can be the best treatment for migraine headache. --Try to eat regular nutritious meals, maintain good hydration, decrease stress, and get regular physical exercise.? Increase oral fluid and maintain clear urine.? If dark or yellow, increase oral fluid. --Take Zofran for nausea.? With migraines, controlling your nausea as soon as possible can help. --Tylenol with codeine for severe pain. --See a private doctor of your choice on 04/06/2025 for recheck and further care. Ask to consider a referral to see a neurologist and MRI brain imaging. --Seek immediate medical care with worsening or with any concerns.? Print Language: Rwandan Stand Alone Forms: Alayna Award Info., Patient Portal Info Letter
--- NOTE | 2025-04-04 22:02 | XR_ITS ---
Examination: CT brain head without contrast. 2-D sagittal coronal reconstructions Date and time of exam: April 05, 2025, 0014 hours INDICATIONS: Severe headache beginning 1 week ago with right eye pressure, history right retinal detachment CTDI: vol (mGy): 57.6 DLP: (mGycm): 1081 Technique: Multiple CT axial sections of the brain have been obtained, 5 mm slice thickness. Contrast has not been administered. 2-D sagittal, coronal reconstructions have been obtained Low dose protocols were performed. One or more of the following dose reduction techniques were used; automated exposure control, adjustment of the mA and/or KV according to patient size, use of iterative reconstruction technique. Findings: No significant ventricular enlargement. Intra-axial or extra-axial hemorrhage density is not seen. No mass effect or midline shift Basal cisterns are not remarkable. Fourth ventricle is midline. Cranial vault intact. Large retention cyst left maxillary antrum Impression: Negative for acute hemorrhage, mass effect or midline shift
[2025-04-04] MEDS: ACETAMINOPHEN w/COD 300-30 TABLET 2 TAB PO (22:20)
[2025-04-04] MEDS: IBUPROFEN TAB 400 MG TABLET 800 MG PO (22:21)
[2025-04-04] MEDS: ONDANSETRON ODT 4 MG TABRAP PO (22:22)
--- NOTE | 2025-04-05 01:35 | PRELIM_ITS ---
CT scan of the head without intravenous contrast (axial sections with sagittal and coronal reformats). April 05, 2025 0014 hours Clinical History: Severe headache No prior study is available for comparison. Findings: No evidence of intracranial hemorrhage, mass effect or midline shift. The ventricles and CSF spaces are unremarkable. The calvarium is unremarkable. There is a large retention cyst or polyp in the left maxillary sinus. The mastoid air cells and the other visualized paranasal sinuses are clear. Impression: No evidence of intracranial hemorrhage, mass effect or midline shift. Other findings as described above. Report Electronically Signed By: Yoan Post 04/05/2025 1:35:11 AM [EST]
[2025-04-05 01:46] LABS: Influenza A Ag Negative; Influenza B Ag Negative
[2025-04-05 01:50] VITALS: BP 135/84; PULSE 95; RESP 14; TEMP 37; O2SAT 99
== END 2025-04-05 01:51 | disposition home or self-care (01) ==
PROVIDERS: Emergency Provider Emergency Medicine
DX: G43.909 Migraine, unspecified, not intractable, without status migrainosus (principal)
CPT/HCPCS: 70450; 87502; 87811; 99284; Q0162; A9270